=== PATIENT | male | born 1950 | race Caucasian/White ===

== ENCOUNTER 2019-09-02 07:00 | Emergency (ER) | payer MEDICARE ==
--- OUTSIDE RECORDS SUMMARY | 2019-09-02 07:13 | XMS REPORT | Continuity of Care Document ---
:1950 Author Organization [facility]ly [facility] Address [address] [place] [address] Phone Care Team Providers Name Role Phone OLIVERIO TOLBERT MD Unavailable Unavailable Allergies, Adverse Reactions, Alerts Substance Reaction Status Substance Type Unknown WARNIN allergy(ies) could not be collected because the type is not supported. Please contact [facility] for further details. Medications Medication Instructions Dosage Effective Dates Status Comments (start - stop) amlodipine 10 mg take 1 tablet by ORAL 10 MG - Active tablet route every day Ventolin HFA 90 inhale 2 puff by 2 puff - Active mcg/actuation aerosol Inhalation route inhaler every 4 - 6 hours as needed Flonase 50 inhale 1 spray by - Active mcg/actuation nasal intranasal route spray,suspension every day in each nostril Problems Condition Effective Dates (start - Clinical Status stop) Cardiac arrest Fall Risk Assessment - Encounter for exam of eyes and vision - w/o abnormal findings Encounter for general adult medical examination without abnormal findings Essential (primary) hypertension Keratotic lesion Body mass index (BMI) 34.0-34.9, adult - Chronic kidney disease, stage 2 (mild) 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 Chronic kidney disease, stage 4 (severe) 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 Secondary hyperparathyroidism of renal - origin Urinary frequency Elevated blood pressure reading Nausea Fatigue, unspecified type Essential (primary) hypertension - Essential (primary) hypertension Penile curvature, acquired Mild intermittent asthma, uncomplicated Viral URI High blood pressure Puncture wound of foot, left Vaccine against DTP - Accident due to sharp instruments NEC - Place of occurrence, home - Hypertension, Benign Obesity, Morbid Obesity, Morbid Routine General Medical Exam Obesity, Morbid PEYRONIE'S DISEASE Hypertension, Benign BMI 38.0-38.9,adult Hyperglycemia Routine Medical Exam - Obesity, Morbid - PEYRONIE'S DISEASE - Obesity, Morbid - PEYRONIE'S DISEASE - Hypertension, Benign PEYRONIE'S DISEASE Conjunctivitis NEC Reflux, esophageal - Asthma, extrinsic w/o status - asthmaticus Rhinitis, allergic NOS - Trigger finger Acute Vertigo, benign paroxysmal position Acute Vertigo, peripheral NEC Acute Disease, respiratory system NOS Acute Abnormal findings, elevated BP w/o HTN Chronic Hypertension, benign essential Good control Asthma, extrinsic w/o status Poorly controlled asthmaticus Routine Medical Exam Routine Routine Medical Exam Routine Hypertension, benign essential Uncontrolled Hypertension, benign essential Uncontrolled Procedures Procedure Date Procedure Unknown Results Test Name Date and Time Measure Units Reference Range Abnormal Flag Status Comments Unknown Encounters Encounter Practice Location Reason(s) Diagnoses Date Provider Providers Description For Visit Copied on Encounter 4416 - [facility] Primary [facility] Upper 7- OLIVERIO. [address] [place], [place], , [place], [address], [place] [address]. tel: tel: [phone] [facility] Primary Cardiac arrest [facility] [employer] [facility] Upper 3-201 OLIVERIO. 33-[address] [place], [place], , [place], [address], [place] [address]. tel: tel:[phone] [facility] Primary Nov-0 [facility], Care Upper 1-201 OLIVERIO. 33-57 [address] 8 1290 [facility] [address], [address], [facility], [place], [place], , [place], [address], [place] [address]. tel: tel: [phone] 0001 [facility] Primary Oct-2 [facility] Upper 9-201 OLIVERIO. 33-57 [address] 8 1290 [facility] [address], [address], [facility], [place], [place], , [place], [address], [place] [address]. tel: tel: [phone] 0001 - [facility] Primary Fall Risk Aug-0 [facility], [facility] Upper AssessmentEncounte 8-201 OLIVERIO. 3357 Front r for exam of eyes 8 1290 [facility] FP and vision w/o [address], Street, abnormal [facility], [place], [place], [place], [address], [place] medical [address]. tel: examination tel: [phone] without abnormal [id number] findingsEssential (primary) hypertensionKerato tic lesionBody mass index (BMI) 34.0-34.9, adult [address] [place] [address] Chronic kidney Aug- [facility], Nephrology disease, stage 2 [facility] 3357 (mild)Hypertensive [address], [address], disease w stg 5, [place] -/[place], [place], , [place], [address], [place] [address]. tel: tel: [phone] 0001 [facility] Chronic kidney Jul- [facility], Nephrology disease, stage 4 [facility]. 3357 (severe)Hypertensi 7 [address] chronic kidney [address], [address], disease w stg 5, [place], [place], [place], [address], [place] hyperparathyroidis [address]. tel: m of renal origin tel:+ [phone] [address] [place] [address] Walk-In Urinary Jun- HOPE KENNY. [facility], Center frequencyElevated 4416 33 Carlos Alberto blood pressure 6 Carlos Alberto [place] readingNauseaFatig [place] [address], ue, unspecified [facility] typeEssential Carlos Alberto, [place], [place], (primary) [place], [address]. [address], [place] hypertension tel:+ tel: [phone] [address] [place] [address] Primary Essential May-0 TOMASZ [facility], Care [facility] (primary) OLIVERIO. 33-57 Front hypertensionPenile 6 1290 [facility] FP curvature, [facility], Street, acquired [facility], [place], [place], , [place], [address], [place] [address]. tel: tel: [phone] [address] [place] [address] Primary Mild intermittent Apr-1 LOVELACE [facility], [facility] asthma, POLO. Front uncomplicated 6 1290 [facility], [place], [facility], [place], [place], , [place], [address], [place] [address]. tel: tel: [phone] [address] [place] [address] Walk-In Viral URI Jun- TOKOS [facility], Center SIMBA. Carlos Alberto 5 [address] [facility], [place], [place], [address]. [address], [place] tel:+ tel: [phone] [address] [place] [address] Walk-In High blood Apr-1 ARSH HO. Referring [facility], Center pressurePuncture 4416 Provider: 33-57 Carlos Alberto wound of foot, 4 Carlos Alberto WALKIN [place] leftVaccine [place] CARLOS ALBERTO, Street, against East, [address] [place] [address] DTPAccident due to Carlos Alberto, Carlos Alberto [place], [place], [place], [address]. [address], [address], [place] NECPlace of tel: Carlos Alberto, tel: occurrence, home [phone] [place], [phone]. [phone] [place], [place] [address]S Primary Trigger Jun- [facility], Care Upper fingerHypertension 0-201 OLIVERIO. 33-57 Front , BenignObesity, 3 1290 [facility] Morbid [facility], [facility], [place], [place], , [place], [address], [place] [address]. tel: tel: [phone] [address] [place] [address] Primary Obesity, [facility], Care [facility] MorbidRoutine 8-201 OLIVERIO. 33-57 Front Medical Exam 3 1290 [facility], [facility], [place], [place], , [place], [address], [place] [address]. tel: tel: [phone] [address] [place] [address] Primary Routine General [facility], [facility] Medical 4-201 OLIVERIO. 33-57 Front ExamObesity, 2 1290 [facility] MorbidPEYRONIE'S [facility], DISEASEHypertensio [facility], [facility], BenignBMI [place], [place], 38.0-38.9,[place], [address], [place] erglycemiaRoutine [address]. tel: Medical tel: [phone] ExamRoutine [id number] Medical ExamObesity, MorbidPEYRONIE'S DISEASEObesity, MorbidPEYRONIE'S DISEASE [address] [place] [address] Primary Hypertension, Aug- [facility], Care [facility] BenignPEYRONIE'S 6-201 OLIVERIO. 33-57 Front DISEASE 0 1290 [facility], [facility], [place], [place], , [place], [address], [place] [address]. tel: tel: [phone] 0001 [facility] Primary Conjunctivitis NEC [facility], Care Upper 6-201 33-[address] [facility], [place], [address], [place] tel: [phone] [facility] Primary Hypertension, [facility], Care Upper benign essential 1-200 OLIVERIO. 33-57 Front 9 1290 [facility] [address], Street, [facility], [place], [place], [place], [address], [place] [address]. tel: tel:+ [phone] 0001 - [facility] Primary Hypertension, Oct- TOMASZ [employer], Care Upper benign essential 0-200 OLIVERIO. 33-57 Front 9 1290 [facility] [address], [place], [facility], [place], [place], , [place], [address], [place] [address]. tel: tel:[phone] 0001 - [facility] Primary Vertigo, benign Sep-1 TOMASZ [employer], Care Upper paroxysmal 1-200 OLIVERIO. 33-57 Front positionHypertensi 9 1290 [facility] on, [facility], Street, essential [facility], [place], [place], , [place], [address], [place] [address]. tel: tel:[phone] 0001 - S Primary Vertigo, [employer], Care Upper peripheral NEC 3-200 33-[address] [facility], [place], [address], [place] tel:+ [phone] - S Primary Disease, Mar-0 LOVELACE Referring S Inc, Care Upper respiratory system 3-200 POLO. Provider: Front NOS 9 1290 [facility], [facility], [facility], [address] [place], [place], , [place], [facility], [address], [place] [address]. [place] tel: tel:+ , [place], [phone] [address]. tel:[phone] 0001 - S Primary Reflux, November- TOMASZ Referring [employer] Inc, Care Upper esophagealAsthma, 2-200 OLIVERIO. Provider: 33-57 Front extrinsic w/o 8 1290 Upper [facility] status [address], S, [address], asthmaticusAbnorma [facility], [facility] l findings, [place], [place], elevated BP w/o , [place], [facility], [address], [place] HTN [address]. [place] tel: tel:+ , [place], [phone] [address]. tel:[phone] [facility] Primary Asthma, extrinsic May-0 TOMASZ [facility] Inc, Care Upper w/o status 6-200 OLIVERIO. 33-57 Front asthmaticusRhiniti 8 1290 [facility] FP s, allergic NOS [facility], [facility], [place], [place], , [place], [address], [place] [address]. tel: tel:[phone] Family History Family Member Diagnosis Age At Onset Family history of cardiomyopathy Family history of Diabetes mellitus Family history of Hypertension Immunizations Vaccine Date Status Comments Pneumococcal conjugate PCV 13 administered Source: New Immunization Record Tdap administered Source: Source Unspecified Td (adult) administered Note: Abstracted -11/10/2007 Pt. Estimated Date ; Source: New Immunization Record Influenza vaccine cancelled Source: New Immunization Record Payers Payer name Insurance type Covered democrat ID Authorization(s) [employer] [id number] Medicare [id number] Social History Type Description Quantity Date Captured Comments Alcohol Use Details Unknown Caffeine Use Details Unknown Tobacco Use Status Unknown Smoking Status Unknown Vital Signs Date / Height Weight BMI Pulse Blood Temperature Respiratory Body Head BMI Time: Rate Pressure Rate Surface Circumference percentile Area Unknown Chief Complaint And Reason For Visit No information Reason For Referral Reason For Referral Unknown Plan Of Care Date Type Action Status Referral Ordered: ordered Quynh Bernard -Cardiovascular Disease (related to Cardiac arrest) Referral Referred To: ordered Quynh Bernard [address], [address] [phone] Ordered: Referrals: Cardiovascular Disease. Quynh Bernard. Evaluate and treat Referral Ordered: ordered . Genrl Surg. Consult and treat. Appointment date/timeframe: 09/03/2011 Referral Ordered: ordered . Physical Therapy. Consult and treat. Appointment date/timeframe: 03/23/2009 Appointment MANCINIWAYNE Date Type Problem Goal Intervention Status Start Date Unknown History Of Present Illness Encounter Date Complaint History Of Present Illness No information Functional Status Encounter Date Functional Assessment Cognitive Assessment Unknown Medications Administered Medication Instructions Dosage Effective Dates (start - stop) Status Comments Drug Treatment Unknown Instructions Date Instruction Additional Information discussed RHM issues, see care Related to Encounter for general guidelines adult medical examination without abnormal findings lesion removed, fu if come back Related to Keratotic lesion continue meds, dianne bp, work on Related to Essential (primary) weight loss hypertension Counseled on dietary changes Counseled on weight reduction The office will call with results of Related to Fatigue, unspecified blood work. Any abnormal results type should be followed up with your primary physician. Zofran - take 1 tablet by oral route Related to Nausea every 8 hours as needed for nauseaMaintain adequate clear fluid intake by taking small sips of fluids often. Lithia diet such as crackers or toast for the next 24 hours then gradually restart regular diet. Frequent handwashing, and avoid sharing food or drinks. If new or worsening symptoms occur then go to the ER for evaluation, otherwise followup with your primary doctor within 5 days for recheck. Please follow up with your primary Related to Elevated blood pressure physician regarding elevated blood reading pressure reading. If you experience a severe headache, chest pain, blurred vision, dizziness, numbness on one side of the face or body or have trouble walking or talking, please go to the ER immediately. Thank you for choosing a S Walk In. We hope that you will be feeling better soon.Any condition can change and some diseases may worsen despite proper treatment. Other problems may begin with vague or unusual symptoms and only over time will the problem become more clear, making it possible to arrive at the correct diagnosis. Your visit today is not a substitute for, or an effort to provide complete medical care. In most cases, you should let your primary care doctor check you again. Tell your doctor about any new or lasting problems. If you do not have a primary care provider, you have been given a list today of local providers who are accepting new patients. All x-rays are interpreted by a radiologist, usually within 48 hours. If there is any important difference between the radiologist's interpretation and what you were told today by the provider, you will be notified. -Risks and benefits of new medication discussed. Patient verbalized understanding. continue meds as directed, get labs Related to Essential ( primary) as directed, check BP outside office, hypertension keep daily sodium intake <1500mg- no canned foods or frozen dinners discussed options, he will try vitamin Related to Penile curvature, e oil for now and if it gets worse acquired will do urology consult use of albuterol reviewed.begin Related to Mild intermittent maintenance inhaler (symbicort) asthma, uncomplicated Increase rest and fluids. Flonase as Related to Viral URI directedPlease take over the counter decongestant or antihistamine if tolerable such as Coricidan HBP or ClaritinPerform good hand hygiene.Warm moist facial compressesIf chest pain, increased shortness of breath, or heart palpitations occur seek emergency attention Medications such as Mucinex and Sudafed may raise your blood pressure and are not recommended with people with Hypertension Please follow up with primary in 3-5 days - Thank you for choosing the [facility] Walk In. We hope that you will be feeling better soon.Any condition can change and some diseases may worsen despite proper treatment. Other problems may begin with vague or unusual symptoms and only over time will the problem become more clear, making it possible to arrive at the correct diagnosis. Your visit today is not a substitute for, or an effort to provide complete medical care. In most cases, you should let your primary care doctor check you again. Tell your doctor about any new or lasting problems. If you do not have a primary care provider, you have been given a list today of local providers who are accepting new patients. All x-rays are interpreted by a radiologist, usually within 48 hours. If there is any important difference between the radiologist's interpretation and what you were told today by the provider, you will be notified. If you had cultures done today, the results will be available in 72 hours, depending on the specimen.
--- OUTSIDE RECORDS SUMMARY | 2019-09-02 07:13 | XMS REPORT | Continuity of Care Document ---
:1950 Author Organization [facility] [place] [facility] Address [address] [place] [address] Phone Care Team Providers Name Role Phone OLIVERIO TOLBERT MD Unavailable Unavailable Allergies, Adverse Reactions, Alerts Substance Reaction Status Substance Type Unknown WARNIN allergy(ies) could not be collected because the type is not supported. Please contact [facility] practice for further details. Medications Medication Instructions [...] For Visit Copied on Encounter 4416 - [facility] Primary [facility] Upper 0-201 OLIVERIO. 3[address] [place] [address], , [place], [address], [place] [address]. tel: tel:[phone] 4416 [facility] Primary Cardiac arrest Jun- [facility], [facility] [place] Upper 3-201 OLIVERIO. 3357 Front 9 [facility] [place], [place], , [place], [address], [place] [address]. tel: tel:[phone] 4416 [facility] Primary Nov-0 [facility], Care Upper 1-201 OLIVERIO. 33-57 Front 8 1290 [facility] FP [address], Street, [facility], [place], [place], , [place], [address], [place] [address]. tel: tel: [phone] 0001 [facility] Primary Oct-2 [facility] Upper 9-201 OLIVERIO. 33-57 Front 8 1290 [facility] FP [address], Street, [facility], [place], [place], , [place], [address], [place] [address]. tel: tel: [phone] 0001 - [facility] Primary Fall Risk Aug-0 [facility], [facility] [place] Upper AssessmentEncounte 8-201 OLIVERIO. 3357 Front r for exam of eyes 8 1290 [facility] FP and vision w/o Front [address], Street, abnormal [facility], [place], [place], [address], [place] medical [address]. tel: examination tel: [phone] without abnormal [id number] findingsEssential (primary) hypertensionKerato tic lesionBody mass index (BMI) 34.0-34.9, adult [address] [place] [address] Chronic kidney Aug- WICHO [facility], Nephrology disease, stage 2 [facility]. 3357 (mild)Hypertensive [address], [address], disease w stg 5, [place] -/[place], [place], , [place], [address], [place] [address]. tel: tel: [phone] 0001 [facility] Chronic kidney Jul- WICHO [facility], Nephrology disease, stage 4 [facility]. 3357 (severe)Hypertensi 7 [address] kidney [address], [address], disease w stg 5, [place] 1-[place], [place], [place], [address], [place] hyperparathyroidis [address]. tel: m of renal origin tel:+ [phone] [address] [place] [address] Walk-In Urinary Jun- HOPE KENNY. [facility], Center frequencyElevated 4416 33 Carlos Alberto blood pressure 6 Carlos Alberto [place] readingNauseaFatig [address], ue, unspecified [facility] typeEssential Carlos Alberto, [place], [place], ([place]) [place], [address]. [address], [place] hypertension tel:+ tel: [phone] [address] [place] [address] Primary Essential May-0 TOMASZ [facility], Care [facility] (primary) OLIVERIO. 33-57 Front hypertensionPenile 6 1290 [facility] FP curvature, [facility], Street, acquired [facility], [place], [place], , [place], [address], [place] [address]. tel: tel: [phone] [address] [place] [address] Primary Mild intermittent Apr-1 LOVELACE [facility], [facility] asthma, POLO. Front uncomplicated 6 1290 [facility], [place], [facility], [place], [place], [address], [place] [address]. tel: tel: [phone] [address] [place] [address] Walk-In Viral URI Jun- TOKOS [facility], Center SIMBA. Carlos Alberto 5 [address] [facility], [place], [address]. [address], [place] tel:+ tel: [phone] [address] [place] [address] Walk-In High blood Apr-1 ARSH HO. Referring [facility], Center pressurePuncture 4416 Provider: 33-57 Carlos Alberto wound of foot, 4 Carlos Alberto WALKIN [place] leftVaccine [place] CARLOS ALBERTO, Street, against East, [address] [place] [address] DTPAccident due to Carlos Alberto, Carlos Alberto [place], [place], [place], [address], [address], [place] NECPlace of tel: Carlos Alberto, tel: occurrence, home [phone] [place], [address]. [phone] [place], [place] [address]S Primary Trigger Jun- [facility], Care Upper fingerHypertension 0-201 OLIVERIO. 33-57 Front , BenignObesity, 3 1290 [facility] Morbid [facility], [facility], [place], [place], [place], [address], [place] [address]. tel: tel: [phone] [address] [place] [address] Primary Obesity, [facility], Care [facility] MorbidRoutine 8-201 OLIVERIO. 33-57 Front Medical Exam 3 1290 [facility], [facility], [place], [place], , [place], [address], [place] [address]. tel: tel: [phone] [address] [place] [address] Primary Routine General [facility], [facility] Medical 4-201 OLIVERIO. 33-57 Front ExamObesity, 2 1290 [facility] MorbidPEYRONIE'S [facility], DISEASEHypertensio [facility], [facility], BenignBMI [place], [place], 38.0-38.9,[place], [address], [place] erglycemiaRoutine [address]. tel: Medical tel: [phone] ExamRoutine [id number] Medical ExamObesity, MorbidPEYRONIE'S DISEASEObesity, MorbidPEYRONIE'S DISEASE [address] [place] [address] Primary Hypertension, Aug- [facility], Care [facility] BenignPEYRONIE'S 6-201 OLIVERIO. 33-57 Front DISEASE 0 1290 [facility], [facility], [place], [place], [place], [address], [place] [address]. tel: tel: [phone] 0001 [facility] Primary Conjunctivitis NEC [facility], Care Upper 6-201 33-57 Front 0 [facility], [place], [address], [place] tel: [phone] 0001 [facility] Primary Hypertension, [facility], Care Upper benign essential 1-200 OLIVERIO. 33-57 Front 9 [address] [facility] [address], Street, [facility], [place], , [place], [address], [place] [address]. tel: tel:+ [phone] 0001 - [facility] Primary Hypertension, Oct- [employer], Care Upper benign essential 0-200 OLIVERIO. 33-57 Front 9 [address] [facility] [address], [place], [facility], [place], [place], [address], [place] [address]. tel: tel:[phone] 0001 - [facility] Primary Vertigo, benign Sep-1 [employer]OM[employer]Z [employer], Care Upper paroxysmal 1-200 OLIVERIO. 33-57 Front positionHypertensi 9 1290 [facility] on, [facility], Street, essential [facility], [place], [place], [address], [place] [address]. tel: tel:[phone] 0001 - S Primary Vertigo, [employer], Care Upper peripheral NEC 3-200 33-57 Front 9 [facility], [place], [address], [place] tel:+ [phone] 0001 - S Primary Disease, Mar-0 LOVELACE Referring [employer] Inc, Care Upper respiratory system 3-200 POLO. Provider: Front NOS 9 1290 [facility], [facility], [facility], 1290 [place], [place], , [place], [facility], [address], [place] [address]. [place] tel: tel:+ , [place], [phone] [address]. tel:[phone] 0001 - S Primary Reflux, November- TOMASZ Referring [employer], Care Upper esophagealAsthma, 2-200 OLIVERIO. Provider: 33-57 Front extrinsic w/o 8 1290 Upper [facility] status [address], S, [address], asthmaticusAbnorma [facility], [facility] l findings, [place], [place], elevated BP w/o , [place], [facility], [address], [place] HTN [address]. [place] tel: tel:+ , [place], [phone]. tel:[phone] [facility] [place] [facility] Primary Asthma, extrinsic May-0 TOMASZ [facility] Inc, Care Upper w/o status 6-200 OLIVERIO. 33-57 Front asthmaticusRhiniti 8 1290 [facility] FP s, allergic NOS [facility], [facility], [place], [place], , [place], [address], [place] [address]. tel: tel:[phone] Family History Family Member Diagnosis Age At [...] Record Payers Payer name Insurance type Covered green party ID Authorization(s) [employer] [id number] Medicare [id number] Social History Type Description Quantity Date Captured [...] Referral Referred To: ordered Quynh Bernard [address], [address] [phone] Ordered: Referrals: Cardiovascular Disease. Quynh Bernard. Evaluate [...] Treatment Unknown Instructions Date Instruction Additional Information continue meds, dianne bp, work on Related to Essential (primary) weight loss hypertension discussed RHM issues, see care Related to Encounter for general guidelines adult medical examination without abnormal findings lesion removed, fu if come back Related to Keratotic lesion Counseled on weight reduction Counseled on dietary changes The office will call with results of Related to Fatigue, unspecified blood work. Any abnormal results type should be followed up with your primary physician. Zofran - take 1 tablet by oral route Related to Nausea every 8 hours as needed for nauseaMaintain adequate clear fluid intake by taking small sips of fluids often. [place] diet such as crackers or toast for [...] days - Thank you for choosing the [facility] Walk In. We hope that you will [...]
--- OUTSIDE RECORDS SUMMARY | 2019-09-02 07:13 | XMS REPORT | Continuity of Care Document ---
:1950 Author Organization [facility] Address [address] [place] [address] Phone Care Team Providers Name Role Phone OLIVERIO TOLBERT MD Unavailable Unavailable Allergies, Adverse Reactions, Alerts Substance Reaction Status Substance Type Unknown WARNIN allergy(ies) could not be collected because the type is not supported. [facility] contact [facility] for further details. Medications Medication Instructions [...] Providers Description For Visit Copied on Encounter 2019 [facility] Primary Cardiac arrest [facility] OLIVERIO. 57 Front 9 1290 [place], [place], , [place], [address], [place] [address]. tel: tel: [phone] 2019 [facility] Primary May-0 [facility]Z [facility] . 3357 Front 8 1290 [place], [place], , [place], [address], [place] [address]. tel: tel: [phone] 2019 [facility] Primary Oct-2 [facility], Care Upper 9-201 OLIVERIO. 33-57 Front 8 [address] [facility] [address], Street, [facility], [place], [place], , [place], [address], [place] [address]. tel: tel:+ [phone] [address] [place] [address] Primary Fall Risk Aug-0 [facility], Care Upper AssessmentEncounte 8-201 OLIVERIO. 33-57 Front r for exam of eyes [address] [facility] FP and vision w/o Front [address], Street, abnormal [facility], [place] [facility]Park[facility] Hospitaler [place], [place], [place], [address], [place] medical [address]. tel: examination tel: [phone] without abnormal [id number] findingsEssential (primary) hypertensionKerato tic lesionBody mass index (BMI) 34.0-34.9, adult [address] [place] [address] Chronic [facility], [facility] 2 [facility] 33-57 (mild)Hypertensive 7 [address] [facility] [address], [address], disease w stg 5, [place] 1-4/[place], [place], , [place], [address], [place] [address]. tel: tel: [phone] [address] [place] [address] Chronic kidney Eric-0 [facility], [facility]ph[facility] disease, stage 4 5-201 [facility] 33-57 (severe)Hypertensi 7 27 [place] Eddie ve chronic kidney Ave, Floor Street, disease w stg 5, [place] 1-4/unsp [place], [place], [place], [address], [place] hyperparathyroidis [address]. tel:+ m of renal origin tel: [phone] [address] [place] [address] Walk-In Urinary Jun- [facility]. [facility], Center frequencyElevated 4417 33-57 Carlos Alberto blood pressure 6 Carlos Alberto [place] readingNauseaFatig [facility], ue, unspecified [facility] typeEssential Carlos Alberto, [place], [place], ([place]) [place], [address]. [address], [place] hypertension tel:+ tel:+ [phone] 0001 - [facility] Primary Essential May-0 TOMASZ [facility], Care Upper (primary) 6-201 OLIVERIO. 33-57 Front hypertensionPenile 6 1290 [facility] FP curvature, [facility] St, Street, acquired [facility], [place], [place], , [place], [address], [place] [address]. tel:+ tel:+ [phone] [facility] Primary Mild intermittent Apr-1 LOVELACE [facility], Care Upper asthma, 5-201 POLO. 33-57 Front uncomplicated 6 1290 [facility] FP [facility], [place], [facility], [place], [place], , [place], [address], [place] [address]. tel: tel:[phone] 0001 - [facility] Walk-In Viral URI Dec-2 TOKOS [facility], Center 5- SIMBA. Carlos Alberto 5 [address] [facility], [place], [address]. [address], [place] tel:+ tel: [phone] 0001 - [facility] Walk-In High blood Apr-1 ARSH HO. Referring [facility], Center pressurePuncture 2201 4417 Provider: 3357 Carlos Alberto wound of foot, 4 Carlos Alberto WALKIN [facility] CARLOS ALBERTO, Street, against East, 4401 [place] DTPAccident due to Carlos Alberto, Carlos Alberto [place], [place], [place], [address]. [address], [address], [place] NECPlace of tel: Carlos Alberto, tel:+ occurrence, [place] [phone] [place], [address]. [phone] 0001 - [facility] Primary Trigger Dec-3 TOMASZ [facility], Care Upper fingerHypertension 0-201 OLIVERIO. 33-57 Front , BenignObesity, 3 1290 [facility] Morbid [facility], [place], [facility], [place], [place], , [place], [address], [place] [address]. tel:+ tel: [phone] 0001 [facility] Primary Obesity, [place]- [facility], Care [facility] MorbidRoutine 8-201 OLIVERIO. 33-57 Front Medical Exam 3 1290 [facility], [facility], [place], [place], [place], [address], [place] [address]. tel: tel: [phone] 0001 [facility] Primary Routine General [facility], Care [facility] Medical 4-201 OLIVERIO. 33-57 Front ExamObesity, 2 1290 [facility] MorbidPEYRONIE'S [facility], DISEASEHypertensio [facility], [facility], BenignBMI [place], [place], 38.0-38.9,[place], [address], [place] erglycemiaRoutine [address]. tel: Medical tel: [phone] ExamRoutine [id number] Medical ExamObesity, MorbidPEYRONIE'S DISEASEObesity, MorbidPEYRONIE'S DISEASE 0001 [facility] Primary Hypertension, [facility], Care [facility] BenignPEYRONIE'S 6-201 OLIVERIO. 33-57 Front DISEASE 0 1290 [facility], [facility], [place], [place], [place], [address], [place] [address]. tel: tel: [phone] [address] [place] [address] Primary Conjunctivitis NEC [facility], Care Upper 6-201 33-57 Front 0 [facility], [place], [address], [place] tel: [phone] 0001 [facility] Primary Hypertension, [facility], Care [facility] benign essential 1-200 OLIVERIO. 33-57 Front 9 1290 [facility], [facility], [place], [place], [place], [address], [place] [address]. tel: tel: [phone] [address] [place] [address] Primary Hypertension, TOMASZ [facility], Care Upper benign essential 0-200 OLIVERIO. 33-57 Front 9 1290 [facility] [address], [place], [facility], [place], [place], [place], [address], [place] [address]. tel:+ tel:[phone] 0001 - [facility] Primary Vertigo, benign Sep-1 TOMASZ [employer], Care Upper paroxysmal 1-200 OLIVERIO. 33-57 Front positionHypertensi [address] [facility] FP on, benign [address], Street, essential [facility], [place], [place], [place], [address], [place] [address]. tel:+ tel:[phone] 0001 - [facility] Primary Vertigo, [employer], Care Upper peripheral NEC 3-200 33-57 Front [address] [facility] [address], [place], [address], [place] tel:+ [phone] 0001 - [facility] Primary Disease, Mar-0 LOVELACE Referring [facility] Inc, Care Upper respiratory system 3-200 POLO. Provider: 3357 Front NOS 9 [address] [facility] [address], [facility], [facility], [address] [place], [place], , [place], [facility], [address], [place] [address]. [place] tel:+ tel:+7 , [place], [phone] [address]. tel:[phone] 0001 - [facility] Primary Reflux, May-2 TOMASZ Referring [facility] Inc, Care Upper esophagealAsthma, 2-200 OLIVERIO. Provider: 33-57 Front extrinsic w/o 8 1290 Upper [facility] status [facility] St, S, [address], asthmaticusAbnorma [facility], [facility] l [place], [place], elevated BP w/o , [place], [facility], [address], [place] HTN [address]. [place] tel:+60 tel:+607 , [place], [phone] [phone] [address]. tel:[phone] 2019 - [facility] Primary Asthma, extrinsic May-0 TOMASZ [facility], Care Upper w/o status 6-200 OLIVERIO. 33-57 Front asthmaticusRhiniti 8 1290 [facility] FP s, allergic NOS [facility], [place], [place], [place], [address], [place] [address]. tel: tel:[phone] Family History Family Member Diagnosis Age At [...] name Insurance type Covered democrat ID Authorization(s) [facility] [id number] Medicare [id number] Social History Type Description Quantity Date Captured [...] Referral Referred To: ordered Quynh Bernard [address], [phone] Ordered: Referrals: Cardiovascular Disease. Quyhn Bernard. Evaluate and treat Referral Ordered: ordered . [facility] Surg. Consult and treat. Appointment date/timeframe: 09/03/2011 Referral Ordered: ordered . Physical Therapy. Consult and treat. Appointment date/timeframe: 03/23/2009 Appointment WAYNE MANCINI Date Type Problem Goal Intervention Status Start Date Unknown History Of Present Illness Encounter Date Complaint History Of Present Illness No information Functional Status Encounter Date Functional Assessment Cognitive Assessment Unknown Medications Administered Medication Instructions Dosage Effective Dates (start - stop) Status Comments Drug Treatment Unknown Instructions Date Instruction Additional Information continue meds, fiollow bp, work on Related to Essential (primary) weight loss hypertension discussed RHM issues, see care Related to Encounter for general guidelines adult medical examination without abnormal findings lesion removed, fu if come back Related to Keratotic lesion Counseled on dietary changes Counseled on weight reduction The office will call with results of Related to Fatigue, unspecified blood work. Any abnormal results type should be followed up with your primary physician. Zofran - take 1 tablet by oral route Related to Nausea every 8 hours as needed for nauseaMaintain adequate clear fluid intake by taking small sips of fluids often. [place] diet such as crackers or toast for [...] ER immediately. Thank you for choosing a [facility]. We hope that you will [...] days - Thank you for choosing the [facility] Walk In. We hope that [...]
--- NOTE | 2019-09-02 07:44 | ED ---
Back Pain - HPI Summary HPI Summary: Patient is a 68 y/o male presenting to [facility] with a chief complaint of worsening myalgias in the neck and back for the last three days. He reports that about two weeks ago, he was suffering from a cold without positive diagnosis of influenza. The productive coughing persisted, so he went to urgent care on 08/30/2019 and was diagnosed with bronchitis with benign CXR. The cough has improved with Robitussin he was prescribed, but then he began to develop midline posterior neck pain and stiffness causing decreased ROM secondary to pain which now radiates into the back, shoulders, and chest. He states the pain in his back is severe and worse with cough, movement, exertion, and lying supine , but not aggravated with deep breathing. He endorses rhinorrhea and pain inferior to the bilateral ears with some numbness on the right side. He additionally notes sleep disturbance and difficulty ambulating secondary to the pain. Patient rates the constant aching pain 8/10 in severity. He denies any fever, chills, erythema of eyes, pain behind the eyes, blurred vision, photophobia, sore throat, ear ache, SOB, abdominal pain, N/V/D, constipation, decreased appetite, dysuria, hematuria, edema or pain in the lower extremities, rash, headaches, paresthesias in the upper extremities or to the jaw, or dizziness. He notes that he has also been using his inhaler more frequently in the last few weeks. No recent heavy lifting or known trauma. Past medical history significant for HTN, HLD, cardiac stent placed July 2018, acute kidney injury. No family history of aneurysms, blood clots. Nonsmoker, weekly alcohol use, no substance use. Medications reviewed. Allergies noted. - History of Current Complaint Chief Complaint: EDBackInjuryPain Stated Complaint: BACK PAIN PER PT Hx Obtained From: Patient Onset/Duration: Still Present Onset/Duration: Started Days Ago, Atraumatic, Still Present Timing: Constant Back Pain Location: Radiates To - neck, upper back shoulders Severity Initially: Moderate Severity Currently: Severe Pain Intensity: 8 Pain Scale Used: 0-10 Numeric Aggravating Symptom(s): Movement, Walking, Cough, Other - lying supine Associated Signs And Symptoms: Positive: Numbness - below r ear, Other - neck stiffness, rhinorrhea, pain inferior to the bilateral ears, sleep disturbance, difficulty ambulating; Negative: chills, erythema of eyes, pain behind the eyes , blurred vision, photophobia, sore throat, ear ache, SOB, N/V/D, constipation, decreased appetite, dysuria, hematuria, edema or pain in the lower extremities, rash, headaches, dizziness. Negative: Fever, Tingling, Abdominal Pain - Allergies/Home Medications Allergies/Adverse Reactions: Allergies Allergy/AdvReac Type Severity Reaction Status Date / Time No Known Allergies Allergy Verified 09/02/19 07:05 Home Medications: Home Medications Albuterol HFA INHALER* [Ventolin HFA Inhaler*] 1 - 2 puff INH Q4H PRN 09/02/19 [ History Confirmed 09/02/19] Albuterol HFA INHALER* [Ventolin HFA Inhaler*] 1 puff INH Q4H PRN #1 mdi [Rx] Aspirin 81 mg CHEW TAB* [Aspirin Low Dose TAB*] 81 mg PO DAILY 09/02/19 [ History Confirmed 09/02/19] Atorvastatin* [Lipitor*] 80 mg PO DAILY 09/02/19 [History Confirmed 09/02/19] Clopidogrel TAB* [Plavix TAB*] 75 mg PO DAILY 09/02/19 [History Confirmed ] Diazepam TAB(*) [Valium TAB(*)] 5 mg PO Q12H PRN #10 tab MDD 2 09/02/19 [Rx] GuaiFENesin DM sugar free [Robitussin DM 100mg/10mg sugar free*] 5 ml PO Q6H PRN 09/02/19 [History Confirmed 09/02/19] HYDROcodone/ACETAMIN 5-325 MG* [Cleveland 5-325 TAB*] 1 tab PO Q6H PRN #20 tab MDD 4 09/02/19 [Rx] Lidocaine PATCH 5%* [Lidoderm 5% Patch*] 1 patch TRANSDERM DAILY #14 patch 09/02 [Rx] Metoprolol Tartrate TAB* [Lopressor TAB*] 25 mg PO DAILY 09/02/19 [History Confirmed 09/02/19] Promethazine/Dextromethorphan [Promethazine-Dm Solution] 5 ml PO Q6H PRN [History Confirmed 09/02/19] PMH/Surg Hx/FS Hx/Imm Hx Endocrine/Hematology History: Denies: Hx Diabetes Cardiovascular History: Reports: Hx Hypercholesterolemia, Hx Hypertension, Other Cardiovascular Problems/Disorders - cardiac stent 2008 History: Reports: Hx Renal Disease - MARIE - Surgical History Surgical History: Yes Surgery Procedure, Year, and Place: cardiac stent 2008 Infectious Disease History: No Infectious Disease History: Denies: Traveled Outside the [place] in Last 30 Days - Family History Known Family History: Negative: Other - aneurysms, blood clots - Social History Alcohol Use: Weekly Hx Substance Use: No Substance Use Type: Reports: None Hx Tobacco Use: No Smoking Status (MU): Never Smoked Tobacco Review of Systems Positive: Other - sleep disturbance and difficulty ambulating d/t pain. Negative: Fever, Chills Negative: Photophobia, Blurred Vision, Erythema, Other - pain behind eyes Positive: Nasal Discharge, Other - pain inferior to ears. Negative: Sore Throat , Ear Ache Positive: Chest Pain - discomfort, possibly related to cough Positive: Cough - productive. Negative: Shortness Of Breath Negative: Abdominal Pain, Vomiting, Diarrhea, Nausea, Other - constipation, decreased appetite Negative: dysuria, hematuria Positive: Myalgia - back, neck, shoulders, Decreased ROM - back and neck ( stiffness) d/t pain. Negative: Edema - in legs, Other - pain in legs Negative: Rash Neurological/Mental Status: Other - Negative: dizziness Positive: Numbness - below right ear. Negative: Headache, Paresthesia - upper extremities, radiating to jaw All Other Systems Reviewed And Are Negative: Yes Physical Exam - Summary Physical Exam Summary: Constitutional: Well-developed, Well-nourished, Alert. Appearing acutely uncomfortable with changing positions from supine to seated position, (-) Distressed Skin: Warm, Dry HENT: Normocephalic; Atraumatic Eyes: Conjunctiva normal Neck: Very limited neck ROM. Midline posterior cervical tenderness. (-) JVD, (- ) Stridor, (-) Tracheal deviation Cardio: Rhythm regular, rate normal, Heart sounds normal; Intact distal pulses; The pedal pulses are 2+ and symmetric. Radial pulses are 2+ and symmetric. (-) Murmur Pulmonary/Chest wall: Effort normal. Very slight crackles in the right lower lung. (-) Respiratory distress, (-) Wheezes, (-) Rales Abd: Soft, (-) tenderness, (-) Distension, (-) Guarding, (-) Rebound Musculoskeletal: (-) Edema Lymph: (-) Cervical adenopathy Neuro: Alert, Oriented x3 Psych: Mood and affect Normal Triage Information Reviewed: Yes Vital Signs On Initial Exam: Initial Vitals Temp Pulse Resp BP Pulse Ox 98.1 F 96 20 169/106 96 09/02/19 07:01 09/02/19 07:01 09/02/19 07:01 09/02/19 07:01 09/02/19 07:01 Vital Signs Reviewed: Yes Procedures - Sedation Patient Received Moderate/Deep Sedation with Procedure: No - Lumbar Puncture L4-L5 Interspace Position: Lateral Decubitus - left Lumbar Puncture Note: Lumbar puncture of the L4-L5 interspace. Bloody tap limited by patient body habitus. Patient in left lateral decubitus position. Entering pressure of 24cm water. Fluid eventually cleared in first tube. Patient tolerated well. Pressure dressing applied. Diagnostics - Vital Signs Vital Signs Temp Pulse Resp BP Pulse Ox 09/02/19 07:01 98.1 F 96 20 169/106 96 - Laboratory Result Diagrams: 09/02/19 07:50 09/02/19 07:50 Lab Statement: Any lab studies that have been ordered have been reviewed, and results considered in the medical decision making process. - Radiology CXR Radiology Interpretation Completed By: Radiologist Summary of Radiographic Findings: Impression: No radiographic evidence for acute cardiopulmonary abnormality on this portable chest x-ray. ED physician has reviewed this report. - CT Chest/Abd/Pel CTA CT Interpretation Completed By: Radiologist Summary of CT Findings: Chest Impression: 1. Mildly limited CT pulmonary angiogram without compelling evidence for pulmonary embolism. 3. Negative for aneurysm or dissection of the thoracic aorta. 3. Very low suspicion 0.3 cm subpleural nodule at the RIGHT middle lobe. In setting of significant risk factors for bronchogenic carcinoma consider follow-up CT in 12 month time. Abd/ Pel Impression: 1. No acute abdominal pelvic pathologic process evident. 2. Moderately severe diverticulosis predominantly involving the sigmoid colon without findings of acute diverticulitis. ED physician has reviewed this report. - EKG 0823 Cardiac Rate: NL - 83 BPM EKG Rhythm: Sinus Rhythm EKG Comparison: Other - Requesting prior EKGs from patient's PCP in [place] for comparison. Summary of EKG Findings: An EKG at 0823 reveals normal sinus rhythm at 83 BPM. T wave inversions in V5, V6. No STEMI. ED physician has reviewed and interpreted this EKG. Re-Evaluation - Re-Evaluation First Eval Re-Evaluation Time: 08:30 Comment: Requesting prior EKGs from PCP in [place]. Second Eval Re-Evaluation Time: 11:05 Change: Improved Comment: Pain somewhat improved with Morphine, Valium ordered. Third Eval Re-Evaluation Time: 15:30 Change: Improved Comment: Patient feeling better. Back Pain Course/Dx - Course Course Of Treatment: Patient is a 68 y/o male presenting with atraumatic neck stiffness and pain radiating into the upper back, shoulders, and chest worsening over the last three days following recent diagnosis of bronchitis for persistent cough that has since improved with Robitussin. No flu test. States rhinorrhea, pain inferior to b/l ears with numbness on R, sleep disturbance and difficulty ambulating d/t pain. Denies fevers, headaches, pain behind eyes, visual changes, changes in bowels, urinary symptoms, pain or swelling in legs. Pain aggravated with cough, lying supine, movement, exertion. Hx HTN, HLD, cardiac stent, MARIE. Physical exam significant for patient appearing acutely uncomfortable with changing positions from supine to seated position, midline posterior cervical tenderness, very slight crackles in the right lower lobe, and very limited neck ROM. Differential diagnoses include MSK pain, cervical strain, PE, aortic dissection. IV access obtained. Patient received fluids, Morphine, anad Zofran. Blood work reveals WBCs 12.2, slight anemia with hemoglobin 13.1 and hematocrit 39, absolute neutrophils 9.5, absolute monocytes 1.2, glucose 110, CRP 61.63, INR 1.25, D-dimer 346. Negative first troponin. First lactic acid WNL. Influenza A and B negative. UA reveals 1+ protein but is otherwise normal. Patient received more fluids, Ceftriaxone, and Vancomycin. An EKG at 0823 reveals normal sinus rhythm at 83 BPM, TWI in V5 and V6, no STEMI. Second troponin negative. Repeat lactic acid WNL. Records obtained from [facility] [place] in [place], [place]. Reviewed EKG from 07/07/2018 and todays EKG for comparison; todays EKG is improved from previous as TWI in V4 and V5 have resolved since prior. Patient experiencing some improvement following Morphine Patient administered Valium. CXR impression is negative for acute process. Chest /Abd/Pel CTA impression is mildly limited without clear indication for PE, aneurysm, or aortic dissection, very low suspicion for 0.3 cm subpleural nodule at the right middle lobe; no abdominal findings except for moderately severe diverticulosis involving sigmoid colon. Patient experiencing some improvement following Morphine Patient administered Valium. Lumbar puncture of the L4-L5 interspace. Bloody tap limited by patient body habitus. Patient in left lateral decubitus position. Entering pressure of 24cm water. Fluid eventually cleared in first tube. Patient tolerated well. Pressure dressing applied. CSF serology results reveals colorless, clear appearance, WBC 1, RBC 0, total cell count 10, no reportable neutrophils, lymphocytes 40, monocytes 60, CSF cell count tube # 4 , CSF glucose 59, CSF total protein 36. Patient is feeling better. He states his cough has improved today since yesterday, but he had been coughing incessantly before today. There is no evidence indicating meningitis. I do not believe he is septic. His symptoms most likely correlate with musculoskeletal pain related to his cough. All of the patients pain is reproducible with movement; he states stiffness, no anginal equivalent. All results discussed. Patient is safe for discharge with PCP follow up and referral to [facility]. Rx for Albuterol inhaler, Valium, Cleveland, and Lidocaine patch. Patient agreeable with plan. - Diagnoses Differential Diagnosis/HQI/PQRI: Positive: Strain - cervical, Other - musculoskeletal pain, cough, PE, aortic dissection Provider Diagnoses: Intercostal pain, Cervical strain Discharge ED - Sign-Out/Discharge Documenting (check all that apply): Patient Departure - Patient will be discharged home. - Discharge Plan Condition: Stable Disposition: HOME Prescriptions: Albuterol HFA INHALER* [Ventolin HFA Inhaler*] 1 puff INH Q4H PRN #1 mdi PRN Reason: Wheezing Diazepam TAB(*) [Valium TAB(*)] 5 mg PO Q12H PRN #10 tab MDD 2 PRN Reason: Spasms HYDROcodone/ACETAMIN 5-325 MG* [[place] 5-325 TAB*] 1 tab PO Q6H PRN #20 tab MDD 4 PRN Reason: Pain - Severe Lidocaine PATCH 5%* [Lidoderm 5% Patch*] 1 patch TRANSDERM DAILY #14 patch Patient Education Materials: Cervical Strain (ED), Musculoskeletal Pain (ED) Referrals: Nikolay Borden MD [Primary Care Provider] - 3 Days [facility] [Outside] - 2 Days Additional Instructions: Please take medications as prescribed. Follow up with your primary care provider in 2-3 days. We have also given you a referral to a service to find you a primary care provider in [place]. Return to the emergency department for any new or worsening symptoms. - Attestation Statements Document Initiated by Scribe: Yes Documenting Scribe: Loretta Bowling Provider For Whom Juno is Documenting (Include Credential): Dr. Mian Lopez MD Scribe Attestation: I, maddy Parkered for Dr. Mian Lopez MD on 09/02/19 at 1608. Status of Scribe Document: Ready
[2019-09-02] MEDS ORDERED: Morphine 4 MG/ML VIAL (1 ml) 4 MG/ML VIAL IV ONE (07:47)
[2019-09-02] MEDS ORDERED: Ondansetron INJ* 2 MG/ML VIAL IV ONE (07:47)
[2019-09-02] MEDS ORDERED: NS 0.9% 500 ML* 500 ML IV ONE (07:50)
[2019-09-02 08:04] LABS: ABS Basophils 0.1 10^3/ul (0-0.2); ABS Eosinophils 0.3 10^3/ul (0-0.6); ABS Monocytes 1.2 10^3/ul (0-0.8); ABS Neutrophils 9.5 10^3/ul (1.5-7.7); Eosinophil % 2.8 %; Hematocrit 39 % (42-52); Hemoglobin 13.1 g/dL (14.0-18.0); Lymphocyte % 7.9 %; Mean Corpuscular HGB Conc 34 g/dL (31-36); Mean Corpuscular Hemoglobin 31 pg (27-31); Mean Corpuscular Volume 90 fL (80-94); Platelet Count 274 10^3/uL (150-450); Red Blood Count 4.31 10^6 /uL (4.18-5.48); Red Cell Distribution Width 14 % (10-15); White Blood Count 12.2 10^3/uL (3.5-10.8)
[2019-09-02 08:19] LABS: Influenza A Molecular Negative (Negative); Influenza B Molecular Negative (Negative)
[2019-09-02 08:27] LABS: Albumin/Globulin Ratio 1.2 (1-3); BUN/Creatinine Ratio 14.7 (8-20); C Reactive Protein 61.63 mg/L (<8.01); Calcium 9.2 mg/dL (8.6-10.3); EGFR African American 81.6 (>60); EGFR Non-African American 67.5 (>60); Globulin 3.4 g/dL (2-4); Potassium 3.8 mmol/L (3.5-5.0); Total Bilirubin 0.6 mg/dL (0.2-1.0); Total Protein 7.4 g/dL (6.4-8.9); Troponin I 0.01 ng/mL (<0.03)
[2019-09-02] MEDS ORDERED: Vancomycin(*) 1,500 MG in NS 0.9% 250 ML* 250 ML IVPB ONE (08:32)
[2019-09-02] MEDS ORDERED: NS 0.9% 1000 ML** 1,000 ML IV.FLUID IV ONE (08:32)
[2019-09-02] MEDS ORDERED: cefTRIAXone(*) 2 GM in NS 0.9% 100 ML* 100 ML IVPB ONE (08:32)
[2019-09-02] MEDS ORDERED: Iohexol 350* (CONTRAST) 500 ML MDV IV ONE (09:18)
[2019-09-02 09:40] LABS: Activated Partial Thrombo Time 33.6 seconds (26.0-38.0); INR 1.25 (0.82-1.09)
[2019-09-02] MEDS ORDERED: Diazepam TAB(*) 5 MG PO ONE (11:05)
[2019-09-02 12:05] LABS: Urine Appearance Clear; Urine Bilirubin Negative (Negative); Urine Blood Negative (Negative); Urine Color Straw; Urine Glucose Negative (Negative); Urine Ketones Negative (Negative); Urine Nitrite Negative (Negative); Urine Protein 1+(30 mg/dL) (Negative); Urine Specific Gravity 1.019 (1.010-1.030); Urine Urobilinogen Negative (Negative)
[2019-09-02 12:21] LABS: Urine Bacteria Absent (Absent); Urine Red Blood Cell Absent (Absent); Urine White Blood Cell Absent (Absent)
[2019-09-02 13:13] LABS: Body Fluid Source Cerebral Spinal
[2019-09-02 13:30] LABS: CSF Glucose 59 mg/dL (40-70)
[2019-09-02 14:48] LABS: Body Fluid Mono 60 %
[2019-09-02 16:11] VITALS: BP 140/96
== END 2019-09-02 15:45 | disposition home or self-care (01) ==
LOC: ED 07:00
DX: S16.1XXA Strain of muscle, fascia and tendon at neck level, initial encounter (principal); R07.82 Intercostal pain; X58.XXXA Exposure to other specified factors, initial encounter; Y92.9 Unspecified place or not applicable; I10 Essential (primary) hypertension; E78.00 Pure hypercholesterolemia, unspecified; Z95.5 Presence of coronary angioplasty implant and graft; Z79.82 Long term (current) use of aspirin; Z79.899 Other long term (current) drug therapy
CPT/HCPCS: 36415; 71045; 71275; 74177; 80053; 81003; 81015; 82945; 83605; 84157; 84484; 85025; 85379; 85610; 85730; 86140; 86618; 87040; 87070; 87205; 89051; 93005; 96361; 96365; 96366; 96368; 96375; 99284; A9270-GY; J0696; J2270; J2405; J3370; Q9967

== ENCOUNTER 2020-06-26 07:32 | Observation (INO) ==
[2020-06-26 08:22] LABS: ABS Basophils 0.1 10^3/ul (0-0.2); ABS Eosinophils 0.2 10^3/ul (0-0.6); ABS Lymphocytes 1.4 10^3/ul (1.0-4.8); ABS Monocytes 0.9 10^3/ul (0-0.8); ABS Neutrophils 4.1 10^3/ul (1.5-7.7); Hematocrit 40 % (42-52); Hemoglobin 13.4 g/dL (14.0-18.0); Lymphocyte % 20.6 %; Mean Corpuscular HGB Conc 34 g/dL (31-36); Mean Corpuscular Hemoglobin 31 pg (27-31); Mean Corpuscular Volume 91 fL (80-94); Mean Platelet Volume 8.6 fL (7.4-10.4); Platelet Count 174 10^3/uL (150-450); Red Blood Count 4.33 10^6 /uL (4.18-5.48); Red Cell Distribution Width 14 % (10-15); White Blood Count 6.6 10^3/uL (3.5-10.8)
[2020-06-26 08:37] LABS: Albumin 4.1 g/dL (3.2-5.2); Albumin/Globulin Ratio 1.5 (1-3); BUN/Creatinine Ratio 24.2 (8-20); Calcium 8.5 mg/dL (8.6-10.3); EGFR African American 100.3 (>60); EGFR Non-African American 82.9 (>60); Globulin 2.7 g/dL (2-4); Potassium 3.7 mmol/L (3.5-5.0); Total Bilirubin 0.5 mg/dL (0.2-1.0); Total Protein 6.8 g/dL (6.4-8.9)
[2020-06-26] MEDS ORDERED: NS 0.9% 1000 ml BAG 1,000 ML IV ONE (11:44)
[2020-06-26] MEDS ORDERED: hydrALAZINE 20 mg/ml 1 ML Vial IV IV SLOW PU ONE (12:43)
[2020-06-26] MEDS ORDERED: Ondansetron 4 mg VIAL 2 MG/ML 2 ml VIAL IV PRN (13:33)
[2020-06-26 13:51] LABS: HDL Cholesterol 34.1 mg/dL
[2020-06-26] MEDS ORDERED: Enoxaparin 40 MG/0.4 ML SYR SUBCUT SCH (14:00)
[2020-06-26 14:05] LABS: TSH Ultra Thyroid Stim Horm 2.57 mcIU/mL (0.34-5.60)
[2020-06-26] MEDS ORDERED: Labetalol IV 5 MG/ML 20 ml VIAL IV PUSH PRN (14:53)
[2020-06-27 05:43] LABS: ABS Basophils 0.1 10^3/ul (0-0.2); ABS Eosinophils 0.2 10^3/ul (0-0.6); ABS Lymphocytes 1.6 10^3/ul (1.0-4.8); ABS Monocytes 0.7 10^3/ul (0-0.8); ABS Neutrophils 3.6 10^3/ul (1.5-7.7); Eosinophil % 2.5 %; Hematocrit 38 % (42-52); Hemoglobin 12.6 g/dL (14.0-18.0); Lymphocyte % 26.1 %; Mean Corpuscular HGB Conc 34 g/dL (31-36); Mean Corpuscular Hemoglobin 31 pg (27-31); Mean Corpuscular Volume 91 fL (80-94); Mean Platelet Volume 8.4 fL (7.4-10.4); Nucleated Red Blood Cells % 0.1; Platelet Count 171 10^3/uL (150-450); Red Blood Count 4.13 10^6 /uL (4.18-5.48); Red Cell Distribution Width 15 % (10-15); White Blood Count 6.2 10^3/uL (3.5-10.8)
[2020-06-27 06:03] LABS: BUN/Creatinine Ratio 16.1 (8-20); Calcium 8.5 mg/dL (8.6-10.3); EGFR African American 97.8 (>60); EGFR Non-African American 80.8 (>60)
[2020-06-27 12:05] VITALS: BP 142/90
== END 2020-06-27 12:50 | disposition home or self-care (01) ==
LOC: MEDTELE 07:32 → ED 07:32
PROVIDERS: ADMIT Pediatrics; ATTEND Internal Medicine

== ENCOUNTER 2023-08-06 08:50 | Inpatient (IN) ==
[~2023-08-06 08:50] MED LIST: BORTEZOMIB SUBCUT SCH; Sodium Polystyrene ORAL.SUSP 15 GM/60 ML BTL PO SCH
[2023-08-06 09:08] LABS: Hematocrit 28.2 % (38-53); Hemoglobin 9.5 g/dL (13.2-16.3); Mean Corpuscular Hgb Conc 33.7 g/dL (31-36); Mean Corpuscular Volume 91.9 fL (80-97); Platelet Count 200 10^3/uL (150-450); Red Blood Count 3.07 10^6/uL (4.06-5.63); Red Cell Distribution Width 16.6 % (12-17)
[2023-08-06 09:26] LABS: ABS Neutrophils 6.7 10^3/uL (1.5-7.6)
[2023-08-06 09:27] LABS: Albumin 3.6 g/dL (3.2-5.2); Albumin/Globulin Ratio 1.2 (1-3); Calcium 6.5 mg/dL (8.6-10.3); Creatinine, Serum 6.36 mg/dL (0.67-1.17); Globulin 2.9 g/dL (2-4); Total Bilirubin 0.5 mg/dL (0.2-1.0); Total Protein 6.5 g/dL (6.4-8.9); eGFR CKD-EPI 8.7 (>60)
[2023-08-06 09:59] LABS: ABS Eosinophils 0.2 10^3/uL (0.0-0.5); ABS Lymphocytes 0.7 10^3/uL (1.0-4.8); ABS Monocytes 0.4 10^3/uL (0.0-1.1); Eosinophil % 2.4 %; Lymphocyte % 8.9 %
[2023-08-06 16:50] LABS: Calcium 6.5 mg/dL (8.6-10.3); Creatinine, Serum 6.5 mg/dL (0.67-1.17); Potassium 6.6 mmol/L (3.5-5.0); eGFR CKD-EPI 8.5 (>60)
[2023-08-06] MEDS: NS 0.9% 1000 ml BAG 1,000 ML IV SCH ×3 (17:07→21:45)
[2023-08-06 17:14] LABS: Albumin 3.5 g/dL (3.2-5.2); Albumin/Globulin Ratio 1.2 (1-3); Globulin 2.9 g/dL (2-4); Total Bilirubin 0.6 mg/dL (0.2-1.0); Total Protein 6.4 g/dL (6.4-8.9)
[2023-08-06] MEDS ORDERED: NS 0.9% 1000 ml BAG 100 ML IV PRN (20:48)
[2023-08-06] MEDS ORDERED: Albumin Human 25% 25 GM/100 ML BTL IV PRN (20:48)
[2023-08-06] MEDS ORDERED: NS 0.9% 1000 ml BAG 200 ML IV PRN (20:48)
[2023-08-06] MEDS: Heparin 5000 UNITS/ML 1 mL VIAL SUBCUT SCH (21:45)
[2023-08-06] MEDS: Sodium Polystyrene ORAL.SUSP 15 GM/60 ML BTL PO ONE (22:06)
[2023-08-06 23:35] LABS: Hepatitis B Surface Antigen Nonreactive (Nonreactive)
[2023-08-06 23:52] LABS: Hepatitis B Surface Ab Not Immune (Immune)
[2023-08-07] MEDS: Norepinephrine 4 MG/250mL D5W 4,000 MCG/250 ML BAG IV SCH (00:10)
[2023-08-07] MEDS: Heparin 1,000 UNIT/ML 10 ml (10,000 UNITS) CATHLAB/DIALYSIS DIALYSIS PRN (00:33)
[2023-08-07 06:21] LABS: Hematocrit 24.2 % (38-53); Hemoglobin 8.2 g/dL (13.2-16.3); Mean Corpuscular Hemoglobin 30.6 pg (27-33); Mean Corpuscular Hgb Conc 33.9 g/dL (31-36); Mean Corpuscular Volume 90.3 fL (80-97); Mean Platelet Volume 9.3 fL (7.5-11.2); Platelet Count 166 10^3/uL (150-450); Red Blood Count 2.69 10^6/uL (4.06-5.63); Red Cell Distribution Width 16.5 % (12-17)
[2023-08-07 06:37] LABS: Albumin 3.3 g/dL (3.2-5.2); Albumin/Globulin Ratio 1.3 (1-3); Calcium 6.5 mg/dL (8.6-10.3); Creatinine, Serum 4.52 mg/dL (0.67-1.17); Globulin 2.6 g/dL (2-4); Magnesium 2.1 mg/dL (1.9-2.7); Potassium 4.4 mmol/L (3.5-5.0); Total Bilirubin 0.4 mg/dL (0.2-1.0); Total Protein 5.9 g/dL (6.4-8.9); eGFR CKD-EPI 13.2 (>60)
[2023-08-07 06:51] LABS: ABS Lymphocytes 0.3 10^3/uL (1.0-4.8); ABS Monocytes 0.6 10^3/uL (0.0-1.1); Eosinophil % 0.1 %; Lymphocyte % 2.7 %
[2023-08-07 09:20] LABS: Rheumatoid Factor < 10 IU/mL (<15)
[2023-08-07 09:23] LABS: Anion Gap 14 mmol/L (2-16); Blood Urea Nitrogen 64 mg/dL (6-24); C Reactive Protein 71.21 mg/L (<8.01); CO2 Carbon Dioxide 22 mmol/L (22-32); Calcium 6.6 mg/dL (8.6-10.3); Chloride 100 mmol/L (101-111); Glucose 134 mg/dL (70-100); Potassium 4.3 mmol/L (3.5-5.0); Sodium 136 mmol/L (135-145); eGFR CKD-EPI 12.6 (>60)
[2023-08-07 09:25] LABS: Urine Appearance Clear; Urine Bilirubin Negative (Negative); Urine Blood 3+ (Negative); Urine Color Yellow; Urine Glucose Negative (Negative); Urine Ketones Negative (Negative); Urine Nitrite Negative (Negative); Urine Protein 1+(30 mg/dL) (Negative); Urine Specific Gravity 1.006 (1.002-1.030); Urine Urobilinogen Negative (Negative)
[2023-08-07 09:49] LABS: Creatine Kinase 7169 U/L (10-223)
[2023-08-07 10:43] LABS: Urine Bacteria Absent (Absent); Urine Red Blood Cell Trace(0-2/hpf) (Absent); Urine White Blood Cell Trace(0-5/hpf) (Absent)
[2023-08-07] MEDS: Desmopressin Acetate 30 MCG in NS 0.9% 50 ML 50 ML IVPB ONE (11:13)
[2023-08-07 11:48] LABS: HIV 4th Generation Nonreactive (Nonreactive)
[2023-08-07 11:56] LABS: Hepatitis C Antibody Negative (Negative)
[2023-08-07] MEDS: Dexamethasone IV 4 MG/ML 5 ML VIAL (20 MG) IVPB SCH (20:12)
[2023-08-08 04:14] LABS: Albumin 3.3 g/dL (3.2-5.2); Albumin/Globulin Ratio 1.3 (1-3); Calcium 6.9 mg/dL (8.6-10.3); Creatinine, Serum 4.13 mg/dL (0.67-1.17); Globulin 2.6 g/dL (2-4); Potassium 4.3 mmol/L (3.5-5.0); Total Bilirubin 0.4 mg/dL (0.2-1.0); Total Protein 5.9 g/dL (6.4-8.9); eGFR CKD-EPI 14.7 (>60)
[2023-08-08 04:27] LABS: INR 1.07 (0.83-1.13)
[2023-08-08 04:31] LABS: ABS Lymphocytes 0.2 10^3/uL (1.0-4.8); ABS Monocytes 0.2 10^3/uL (0.0-1.1); ABS Neutrophils 7.4 10^3/uL (1.5-7.6); Hematocrit 23.3 % (38-53); Lymphocyte % 2.8 %; Mean Corpuscular Hemoglobin 31.2 pg (27-33); Mean Corpuscular Hgb Conc 34.4 g/dL (31-36); Mean Corpuscular Volume 90.8 fL (80-97); Mean Platelet Volume 9.9 fL (7.5-11.2); Platelet Count 148 10^3/uL (150-450); Red Blood Count 2.57 10^6/uL (4.06-5.63); Red Cell Distribution Width 16.1 % (12-17); White Blood Count 7.8 10^3/uL (3.6-10.2)
[2023-08-08 16:44] LABS: Complement C3 130 mg/dL (75 - 175)
[2023-08-09 06:25] LABS: Hematocrit 21.5 % (38-53); Hemoglobin 7.4 g/dL (13.2-16.3); Mean Corpuscular Hemoglobin 31.2 pg (27-33); Mean Corpuscular Hgb Conc 34.3 g/dL (31-36); Mean Platelet Volume 9.6 fL (7.5-11.2); Platelet Count 121 10^3/uL (150-450); Red Blood Count 2.36 10^6/uL (4.06-5.63); Red Cell Distribution Width 16.6 % (12-17); White Blood Count 7.4 10^3/uL (3.6-10.2)
[2023-08-09 07:02] LABS: Creatinine, Serum 4.64 mg/dL (0.67-1.17); Phosphorus 5.8 mg/dL (2.5-5.0); Potassium 4.6 mmol/L (3.5-5.0); eGFR CKD-EPI 12.8 (>60)
[2023-08-09 07:31] LABS: ABS Lymphocytes 0.2 10^3/uL (1.0-4.8); ABS Monocytes 1.2 10^3/uL (0.0-1.1); ABS Neutrophils 5.9 10^3/uL (1.5-7.6); Eosinophil % 0.1 %; Lymphocyte % 3.3 %
[2023-08-09 11:14] LABS: Case Number KR-24-595
[2023-08-09 12:32] LABS: C-ANCA Negative (Negative); P-ANCA Negative (Negative)
[2023-08-10 05:46] LABS: Calcium 6.5 mg/dL (8.6-10.3); Creatinine, Serum 4.15 mg/dL (0.67-1.17); Magnesium 1.8 mg/dL (1.9-2.7); Phosphorus 4.8 mg/dL (2.5-5.0); Potassium 4.3 mmol/L (3.5-5.0); eGFR CKD-EPI 14.6 (>60)
[2023-08-10 06:04] LABS: ABS Lymphocytes 0.2 10^3/uL (1.0-4.8); ABS Monocytes 1.4 10^3/uL (0.0-1.1); ABS Neutrophils 7.3 10^3/uL (1.5-7.6); Eosinophil % 0.1 %; Hemoglobin 7.9 g/dL (13.2-16.3); Lymphocyte % 2.7 %; Mean Corpuscular Hgb Conc 34.2 g/dL (31-36); Mean Corpuscular Volume 90.6 fL (80-97); Mean Platelet Volume 10.1 fL (7.5-11.2); Platelet Count 120 10^3/uL (150-450); Red Blood Count 2.54 10^6/uL (4.06-5.63); Red Cell Distribution Width 16.9 % (12-17)
[2023-08-10 10:14] LABS: Urine Creatinine Concentration 64.7 mg/dL (20.00-370.00)
[2023-08-10 10:36] LABS: Urine Appearance Clear; Urine Bilirubin Negative (Negative); Urine Blood 2+ (Negative); Urine Color Yellow; Urine Glucose 1+(50 mg/dL) (Negative); Urine Ketones Negative (Negative); Urine Nitrite Negative (Negative); Urine Protein 1+(30 mg/dL) (Negative); Urine Specific Gravity 1.012 (1.002-1.030); Urine Urobilinogen Negative (Negative)
[2023-08-10 10:40] LABS: Urine Bacteria 1+ (Absent); Urine Red Blood Cell 2+(6-10/hpf) (Absent); Urine White Blood Cell 1+(6-10/hpf) (Absent)
[2023-08-11 06:50] LABS: ABS Eosinophils 0.2 10^3/uL (0.0-0.5); ABS Lymphocytes 0.3 10^3/uL (1.0-4.8); ABS Monocytes 1.1 10^3/uL (0.0-1.1); ABS Neutrophils 6.7 10^3/uL (1.5-7.6); Hematocrit 24.2 % (38-53); Hemoglobin 8.2 g/dL (13.2-16.3); Lymphocyte % 3.3 %; Mean Corpuscular Hemoglobin 31.2 pg (27-33); Mean Corpuscular Hgb Conc 33.9 g/dL (31-36); Mean Corpuscular Volume 91.8 fL (80-97); Mean Platelet Volume 9.9 fL (7.5-11.2); Platelet Count 124 10^3/uL (150-450); Red Blood Count 2.63 10^6/uL (4.06-5.63); Red Cell Distribution Width 16.5 % (12-17); White Blood Count 8.3 10^3/uL (3.6-10.2)
[2023-08-11 07:11] LABS: Calcium 6.1 mg/dL (8.6-10.3); Creatinine, Serum 5.04 mg/dL (0.67-1.17); Magnesium 1.7 mg/dL (1.9-2.7); Phosphorus 5.1 mg/dL (2.5-5.0); Potassium 4.5 mmol/L (3.5-5.0); eGFR CKD-EPI 11.6 (>60)
[2023-08-11 08:07] LABS: Albumin 3.1 g/dL (3.2-5.2)
[2023-08-11 12:40] LABS: Calcium (PTH Intact) 6.6 mg/dL (8.6-10.3)
[2023-08-11] MEDS: Calcium Carb (TUMS) 500 mg CHEW TAB PO SCH (13:02)
[2023-08-11] MEDS: Magnesium Sulfate IV 1GM/100ML 1 GM/100 ML BAG IV ONE (13:23)
[2023-08-11 15:37] LABS: PLA2R, Immunofluorescence, S Negative (Negative)
[2023-08-11 17:36] LABS: Kappa Free Light Chain 48.3 mg/dL; Lambda Free Light Chain, S 1.2 mg/dL
[2023-08-12 06:02] LABS: ABS Eosinophils 0.1 10^3/uL (0.0-0.5); ABS Lymphocytes 0.4 10^3/uL (1.0-4.8); ABS Monocytes 1.1 10^3/uL (0.0-1.1); ABS Neutrophils 6.4 10^3/uL (1.5-7.6); Eosinophil % 1.8 %; Hemoglobin 7.8 g/dL (13.2-16.3); Lymphocyte % 4.8 %; Mean Corpuscular Hemoglobin 30.8 pg (27-33); Mean Corpuscular Hgb Conc 33.7 g/dL (31-36); Mean Corpuscular Volume 91.4 fL (80-97); Mean Platelet Volume 9.4 fL (7.5-11.2); Platelet Count 135 10^3/uL (150-450); Red Blood Count 2.52 10^6/uL (4.06-5.63); Red Cell Distribution Width 16.7 % (12-17); White Blood Count 8.1 10^3/uL (3.6-10.2)
[2023-08-12 06:25] LABS: Creatinine, Serum 3.76 mg/dL (0.67-1.17); Magnesium 1.8 mg/dL (1.9-2.7); Phosphorus 4.7 mg/dL (2.5-5.0); eGFR CKD-EPI 16.4 (>60)
[2023-08-12] MEDS: Magnesium Sulfate IV 1GM/100ML 1 GM/100 ML BAG IV ONE (09:43)
[2023-08-12] MEDS: Senna TAB 8.6 mg TAB PO PRN ×2 (10:00→20:23)
[2023-08-12] MEDS ORDERED: Polyethylene Glycol 3350 17 GM PACKET PO PRN (11:40)
[2023-08-12] MEDS: Clindamycin 600 MG/D5W BAG 600 MG/50 ML BAG IV ONE (12:19)
[2023-08-12] MEDS: PALONOSETRON HCL 0.05 MG/ML (0.25 MG) SYRINGE (0.05 MG/ML) IV ONE (13:01)
[2023-08-12] MEDS: BORTEZOMIB SUBCUT ONE (13:09)
[2023-08-12] MEDS ORDERED: fentaNYL 100 mcg/2 ml 50 MCG/ML VIAL ONE (13:49)
[2023-08-12] MEDS ORDERED: Heparin 1,000 UNIT/ML 10 ml (10,000 UNITS) CATHLAB/DIALYSIS ONE (13:49)
[2023-08-12] MEDS ORDERED: Midazolam 5 mg/5 ml VIAL 1 mg/ml 5 ml VIAL (5 mg) ONE (13:49)
[2023-08-12] MEDS ORDERED: Heparin 2 UNITS/ML 1000 mls 1,000 ML IV ONE (13:50)
[2023-08-12] MEDS ORDERED: Lidocaine 1% MPF 5 ML VIAL ONE (13:50)
[2023-08-12] MEDS: Lactulose 30 ml UDC PO ONE (16:19)
[2023-08-12] MEDS: Polyethylene Glycol 3350 17 GM PACKET PO PRN (16:19)
[2023-08-13 07:58] LABS: ABS Lymphocytes 0.3 10^3/uL (1.0-4.8); ABS Monocytes 1.3 10^3/uL (0.0-1.1); ABS Neutrophils 14.2 10^3/uL (1.5-7.6); Hematocrit 23.5 % (38-53); Lymphocyte % 1.8 %; Mean Corpuscular Hemoglobin 30.9 pg (27-33); Mean Corpuscular Hgb Conc 34.1 g/dL (31-36); Mean Corpuscular Volume 90.4 fL (80-97); Mean Platelet Volume 9.2 fL (7.5-11.2); Platelet Count 166 10^3/uL (150-450); Red Cell Distribution Width 16.2 % (12-17); White Blood Count 15.8 10^3/uL (3.6-10.2)
[2023-08-13 08:34] LABS: Albumin 2.9 g/dL (3.2-5.2); Albumin/Globulin Ratio 1.3 (1-3); Calcium 7.5 mg/dL (8.6-10.3); Creatinine, Serum 4.14 mg/dL (0.67-1.17); Globulin 2.3 g/dL (2-4); Magnesium 2.1 mg/dL (1.9-2.7); Phosphorus 4.8 mg/dL (2.5-5.0); Potassium 5.2 mmol/L (3.5-5.0); Total Bilirubin 0.4 mg/dL (0.2-1.0); Total Protein 5.2 g/dL (6.4-8.9); eGFR CKD-EPI 14.6 (>60)
[2023-08-13] MEDS: Lactulose 30 ml UDC PO ONE (13:10)
[2023-08-14 06:40] LABS: Hematocrit 22.5 % (38-53); Hemoglobin 7.6 g/dL (13.2-16.3); Mean Corpuscular Hemoglobin 31.3 pg (27-33); Mean Corpuscular Volume 92.1 fL (80-97); Mean Platelet Volume 8.6 fL (7.5-11.2); Platelet Count 160 10^3/uL (150-450); Red Blood Count 2.44 10^6/uL (4.06-5.63); Red Cell Distribution Width 16.8 % (12-17); White Blood Count 10.7 10^3/uL (3.6-10.2)
[2023-08-14 07:03] LABS: Calcium 7.1 mg/dL (8.6-10.3); Creatinine, Serum 3.33 mg/dL (0.67-1.17); Magnesium 1.8 mg/dL (1.9-2.7); Potassium 4.3 mmol/L (3.5-5.0)
[2023-08-14 08:03] LABS: ABS Eosinophils 0.1 10^3/uL (0.0-0.5); ABS Lymphocytes 0.8 10^3/uL (1.0-4.8); ABS Monocytes 1.6 10^3/uL (0.0-1.1); ABS Neutrophils 8.1 10^3/uL (1.5-7.6); Anisocytosis 1+; Eosinophil % 1.3 %; Lymphocyte % 7.8 %
[2023-08-14] MEDS: Magnesium Sulfate 2 gm BAG 2 GM/50 ML BAG IVPB ONE (08:28)
[2023-08-14] MEDS: Lactulose 30 ml UDC PO ONE (11:28)
[2023-08-15 06:31] LABS: Hematocrit 25.8 % (38-53); Hemoglobin 8.3 g/dL (13.2-16.3); Mean Corpuscular Hemoglobin 30.6 pg (27-33); Mean Corpuscular Hgb Conc 32.1 g/dL (31-36); Mean Corpuscular Volume 95.6 fL (80-97); Mean Platelet Volume 8.4 fL (7.5-11.2); Platelet Count 161 10^3/uL (150-450); Red Blood Count 2.69 10^6/uL (4.06-5.63); Red Cell Distribution Width 17.5 % (12-17); White Blood Count 6.7 10^3/uL (3.6-10.2)
[2023-08-15 06:47] LABS: Calcium 7.6 mg/dL (8.6-10.3); Creatinine, Serum 3.54 mg/dL (0.67-1.17); Magnesium 2.2 mg/dL (1.9-2.7); Phosphorus 4.4 mg/dL (2.5-5.0); Potassium 4.5 mmol/L (3.5-5.0); eGFR CKD-EPI 17.7 (>60)
[2023-08-15 06:55] LABS: ABS Eosinophils 0.3 10^3/uL (0.0-0.5); ABS Lymphocytes 0.7 10^3/uL (1.0-4.8); ABS Monocytes 1.5 10^3/uL (0.0-1.1); ABS Neutrophils 4.2 10^3/uL (1.5-7.6); ABS Nucleated RBC 0.01 10^3/ul; Eosinophil % 3.8 %; Nucleated Red Blood Cells % 0.2 %/100WBC (0.0-0.8)
[2023-08-15 12:03] VITALS: BP 132/73
[2023-08-15] MEDS: BORTEZOMIB SUBCUT ONE (12:16)
[2023-08-19 12:56] LABS: TB1 Ag minus Nil Result -0.01 IU/mL
[2023-08-19 12:59] LABS: QuantiferonTb Gold Plus Result Indeterminate (Negative)
== END 2023-08-15 14:15 | disposition home or self-care (01) | DRG 674 ==
LOC: CHOA 08:50 → MED 14:58 → SUATTDRO 14:58 → ICU 20:49 → MEDTELE 08-10 18:29
PROVIDERS: ADMIT Internal Medicine Hematology & Oncology; ATTEND Internal Medicine